=== PATIENT | female | born 1990 | race Caucasian/White ===

== ENCOUNTER 2021-12-15 16:29 | Emergency (ER) | payer OTHER ==
[~2021-12-15] VITALS: Ht 167.6 cm; Wt 82.1 kg
--- OUTSIDE RECORDS SUMMARY | 2021-12-15 16:32 | XMS ---
PreManage Notification: [employer] Events 1 event(s) in the past 18 months Most recent security events: Other at [facility] 07/25/2021 13:15 Details: PATIENT LWBS CRITERIA MET - PDMP CARE PROVIDERS There are no care providers on record at this time. Verónica has no Care Guidelines for this patient. Mike VISIT COUNT (12 MO.) 2 [facility] TOTAL 2 NOTE: Visits indicate total known visits. ED/C VISIT TRACKING (12 MO.) 12/15/2021 16:29 [facility] [place] TYPE: Emergency COMPLAINT: - FACIAL SWELLING 07/25/2021 13:15 [facility] [place] TYPE: Emergency COMPLAINT: - DENTAL ISSUE INPATIENT VISIT TRACKING (12 MO.) No inpatient visits to display in this time frame [email or web address]
[2021-12-15] MEDS ORDERED: BUSPIRONE HCL15 MG PO (16:45)
[2021-12-15] MEDS ORDERED: BUPRENORP-NALO1 EAC1 SL (16:45)
[2021-12-15] MEDS ORDERED: CETIRIZINE HCL10 MG PO (16:45)
[2021-12-15] MEDS ORDERED: BUPROPION XL150 MG PO (16:45)
[2021-12-15] MEDS ORDERED: CITALOPRAM HBR40 MG PO (16:45)
[2021-12-15] MEDS ORDERED: NICOTINE PATCH1 EACH TD (16:45)
[2021-12-15] MEDS ORDERED: QUETIAPINE FUM200 MG PO (16:46)
[2021-12-15] MEDS ORDERED: LAMOTRIGINE25 MG PO (16:46)
[2021-12-15] MEDS ORDERED: MONTELUKAST SOD10 MG PO (16:46)
[2021-12-15] MEDS ORDERED: CLEOCIN HCL300 MG PO (19:09)
== END 2021-12-15 19:20 | disposition home or self-care (01) ==
LOC: ED 16:29
DX: K04.7 Periapical abscess without sinus (principal); Z79.899 Other long term (current) drug therapy
CPT/HCPCS: A9270